=== PATIENT | female | born 1935 | race Caucasian/White ===

== ENCOUNTER 2019-08-09 16:15 | Inpatient (IN) | payer OTHER ==
[~2019-08-09] VITALS: Ht 121.9 cm; Wt 37.5 kg
--- NOTE | ~2019-08-09 | EKG ---
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
[2019-08-09 16:20] VITALS: BP 124/77
[2019-08-09 16:49] LABS: ABSOLUTE NEUTROPHILS 4.3 thou/uL (1.4-8.2); BASOPHILS 0.3 % (0.0-2.0); EOSINOPHILS 1.4 % (0.0-3.0); HEMATOCRIT 40.1 % (37.0-47.0); HEMOGLOBIN 12.8 gm/dL (12.0-15.0); MCH 28.2 pg (26.0-34.0); MCV 88.2 fL (80.0-100.0); PLATELET COUNT 120 thou/uL (150-400); POLYS 71.3 % (36.0-66.0); RBC 4.55 mil/uL (4.20-5.00); RDW 14.5 % (10.5-14.5); WBC 6.1 thou/uL (4.0-11.0)
[2019-08-09 17:04] LABS: ANION GAP 10 mmol/L (7-16); BUN 43 mg/dL (7-18); CHLORIDE 103 mmol/L (98-107); CO2 28 mmol/L (21-32); CREATININE 1.8 mg/dL (0.6-1.0); GLUCOSE 94 mg/dL (74-106); POTASSIUM 4.8 mmol/L (3.5-5.1); SODIUM 141 mmol/L (136-145)
[2019-08-09 17:08] LABS: ALBUMIN 3.6 g/dL (3.4-5.0); SALICYLATE < 2.8 mg/dL (2.8-20.0); SGOT 34 U/L (15-37); SGPT 18 U/L (30-65); TOTAL BILIRUBIN 0.4 mg/dL (<0.1-1.0); TOTAL PROTEIN 6.8 g/dL (6.4-8.2)
[2019-08-09 17:09] LABS: URINE BILIRUBIN NEGATIVE (Negative); URINE BLOOD NEGATIVE (Negative); URINE CLARITY CLEAR; URINE COLOR YELLOW; URINE GLUCOSE-RANDOM* NEGATIVE (Negative); URINE KETONES 1+ (Negative); URINE LEUKOCYTES-REFLEX NEGATIVE (Negative); URINE PROTEIN (DIPSTICK) 2+ (Negative); URINE SPECIFIC GRAVITY >= 1.030 (1.005-1.035)
[2019-08-09 17:10] LABS: URINE NITRITE-REFLEX POSITIVE (Negative)
[2019-08-09 17:15] LABS: AMP/METHAMP Negative (Negative); BARBITURATES Negative (Negative); BENZODIAZEPINES Negative (Negative); COCAINE Negative (Negative); METHADONE Negative (Negative); OPIATES Negative (Negative); PCP Negative (Negative)
[2019-08-09 17:19] LABS: CASTS None Seen /LPF (None Seen); CRYSTALS None Seen /LPF (None Seen); SQUAMOUS 0-3 Few /LPF (0-3); URINE RBC None Seen /HPF (0-2); URINE WBC-REFLEX None Seen /HPF (0-5)
[2019-08-09 20:41] VITALS: BP 133/68
[2019-08-09 21:10] VITALS: BP 141/73
[2019-08-09 21:34] VITALS: BP 152/80
[2019-08-09] MEDS ORDERED: DEPAKOTE SPRIN125 MG PO ×2 (21:54→21:55)
[2019-08-09] MEDS ORDERED: DULCOLAX10 MG RECTAL (21:57)
[2019-08-09] MEDS ORDERED: MILK OF MA400 MG/5 M PO (21:57)
[2019-08-09] MEDS ORDERED: MIRALAX17 GM PO (21:58)
[2019-08-09] MEDS ORDERED: THROAT LOZENGE1 EACH PO (21:59)
[2019-08-09] MEDS ORDERED: TYLENOL325 MG PO (22:00)
--- NOTE | 2019-08-09 22:33 | NUR ---
ARRIVED VIA HOSPITAL BED X1 ASSIST FROM [facility] ED @ 2200. STOOD TO TRANSFER FROM [facility] TO BED 525B. CONFUSED AND RESPONDED TO QUESTION ABLUT HER NAME, ANSWERING WITH WORDS THAT WERE NOT HER NAME. SLIGHTLY COOPERATIVE WITH ASSESSMENT. DID HOLD EQUIPMENT TIGHTLY WITH HER HANDS, NOT VIOLENT. SKIN IS INTACT, BRIEF WET, INCONTINENT OF BLADDER, NO STOOL NOTED. DRANK THIN WATER. CALLED DAUGHTER, JALEESA CORDOVA [phone] @ 22:15, MAILBOX FULL, SO UNABLE TO LEAVE A MSG. CALLED ON DPS OFFICE PHONE, MESSAGE LEFT. PATIENT DRESSED IN HOSPITAL GOWN, TUCKED INTO BED WITH YELLOW SOCKS ON. VITALS TAKEN, ASSESSMENT COMPLETE. BED IN LOW POSITION, BED ALARM SET. WILL CONTINUE TO MONITOR Q 12 FOR PATIENT SAFETY.
--- NOTE | 2019-08-10 06:16 | NUR ---
SLEPT 7.2 HOURS OVERNIGHT
[2019-08-10 07:30] VITALS: BP 125/90
[2019-08-10 08:41] LABS: FOLIC ACID 13.1 ng/mL (8.6-58.9); TSH 2.698 uIU/mL (0.358-3.740)
--- NOTE | 2019-08-10 12:07 | NUR ---
DUY contacted pt's daughter Yadira and received no answer; vm is full so no msg was left. DUY contacted pt's son Serafin who said he lives in [place] and did not know his mom was in the hospital. He said the last time he saw her was 9 months ago, and she was agitated at that time so his visit was very brief. He gave DUY his brother Maxwell's number ([phone]). DUY contacted Maxwell. No msg. She left a msg asking to have Yadira contact her. DUY again attempted to contact Yadira on mobile. No answer. DUY contacted Yadira's work number and was told she was out today. DUY again contacted Serafin and asked him to ask Yadira to contact her. He said he will also send her a text with DUY contact information. DUY team will continue to follow pt during her stay.
--- NOTE | 2019-08-10 12:58 | NUR ---
ASSUMED PATIENT CARE AT 0730M- PATIENT ALERT TO SELF. WANDERS ABOUT UNIT - POOR APPETITE. REFUSED TO EAT BREAKFAST ADN LUNCH. WILL ATTEMPT TO FEED SELF WHEN PLACE INFRONT OF HER. RESISTANCE TO ATTEMPTS AT HELPING HER. - QUIET - WILL ACCEPT REDIRECTION BUT NEED TO WIN TRUST AND CONFIDENCE WITH PATIENT. NO AGITATION OBSERVED BUT WILL RESIST AT TIMES - EXHIBITS FEAR AT TIMES WHEN APPROACHED. TAKENS MEDICATIONS CRUSHED BUT NEED ALOT OF ENCOURAGENMENT
--- NOTE | 2019-08-10 22:40 | NUR ---
THE PT REFUSED TO TAKE HER MEDICATION THIS PM, THIS WRIER HAD PUT IT IN YOGURT AND SHE REFUSED TO EVEN TRY IT. THE PT WAS SITTING IN THE DAYROOM FALLING ASLEEP, ATTEMPTED TO ASSIST THE PT TO BED, BUT SHE IS UP ABOUT HER ROOM AT THIS POINT IN TIME. REMAINS ON 12 MINUTE CHECKS FOR HER SAFETY.
[2019-08-10 22:51] VITALS: BP 141/80
--- NOTE | 2019-08-11 04:34 | NUR ---
THE PT APPEARED TO BE SLEEPING EARLIER IN THE SHIFT. SHE WAS INCONT. OF URINE X 1. IT WAS REPORTED TO THIS NURSE EARLIER IN THE SHIFT, THE PT HAS NOT BEEN EATING. REMAINS ON 12 MINUTE CHECKS FOR HER SAFETY.
--- NOTE | 2019-08-11 06:11 | NUR ---
the pt slept 4 hours last night.
--- NOTE | 2019-08-11 07:30 | NUR ---
Assumed care of patient from rn night. Patient confused, repeating words and phrases multiple times during assessment. Patient somewhat anxious. Appearance clean and neat. Patients affect normal. Breath sounds clear bilaterally. s1 s2 present. Bowel sounds present. Patient took am medications with much encouragement. Pills crushed and applesauce added. Patient difficult to redirect. Patient ambulates with out assistance and walks around the unit. Patient interacts with peers.
[2019-08-11 09:12] VITALS: BP 100/73
[2019-08-11 22:17] VITALS: BP 112/87
--- NOTE | 2019-08-12 01:26 | NUR ---
ASSUMED CARE @ 19:15 ON 08/11/19. NOTED TO BE AMBULATING THROUGH THE HALLWAYS AND DAY ROOM. AMBULATES INTO OTHER PATIENT'S ROOMS SITTING ON THEIR BEDS, OCCASIONALLY EVEN WHEN THE PATIENT IS IN THE BED. REFUSED HS PO MEDS. GIVEN HALDON 2 MG IM Q 4 HOUR PRN @ 21:06 FOR INCREASED AGITATION. BECAME CALM ENOUGH TO SIT IN A CHAIR, BUT CONTINUED AGITATION AND ANXIETY. JAMES sEROQUEL 25MG QID @ 11:59. ALLOWED HERSELF TO BE TRANSFERRED TO BED, AND CONTINUES TO REST IN BED WITH EYES CLOSED, RESPIRATIONS EVEN AND UNLABORED. WILL CONTINUE TO POSITION BED AT LOW LEVEL, BED ALARM SET. 12 MINUTE ROUNDING CONTINUING.
[2019-08-12 05:50] VITALS: BP 112/87
--- NOTE | 2019-08-12 05:58 | NUR ---
slept 5.6 hours overnight
[2019-08-12 09:16] VITALS: BP 112/87
--- NOTE | 2019-08-12 09:23 | NUR ---
ASSUMED CARE AT 0700 THIS MORNING. PT. WAS GOTTEN UP BY BAD WORK GATHERER'S FOR BREAKFAST. SHE WAS SIT IN A W/C DUE "STAGGERING, UNSTABLE" AMBULATION. SHE WAS PLACED AT A TABLE. SHE PUT HER HEAD DOWN ON THE TABLE AND RETURNED TO SLEEP. SHE REFUSED TO EAT BREAKFAST. MEDICATIONS WERE CRUSHED AND PLACED IN ICE CREAM. PT. TOOK THESE AND THEN ATE A FEW BITES OF ICE CREAM THEN REFUSED ANY MORE INTAKE. SHE WAS OFFERED WATER, BUT SHE REFUSED. SHE WAS ON THE UNIT FOR MORNING GROUP, BUT SLEPT THROUGH IT. SHE CONTINUES TO BE VERY CONFUSED. SHE SPEAKS VERY LITTLE BUT ONLY GETS OUT A FEW WORDS THAT ARE UNDERSTOOD. THE REST OF THE TIME SHE IS UNINTELLIGIBLE IN HER SPEECH.
[2019-08-12 20:34] VITALS: BP 149/91
--- NOTE | 2019-08-12 23:27 | NUR ---
Care assumed of patient at 1915: Patient will respond to her name being said. Patient can't verbalize her name. Unable to state current location, date and situation. Patient mumbling and rambling. Disorganized thoughts. Unable to understand what is being said. Patient took medication crushed without difficulty. Ate 25% HS snack. Patient appears anxious and becomes agitated when staff attempt to assist with ADLs. Patient has not shown any physical aggression at this time. Patient remains seated in w/c in the day room, awake. Patient does not appear tired at this time. Staff will assist patient to bed to see if she will be able to sleep this shift. Patient has been able to sit in the day room and fidget with activity mat this evening. No wandering or exploring observed. Patient remains on abx tx for the dx of UTI. No s/s of adverse effects noted at this time. Incontinent of bladder. Sadaf care provided after incontinent episode. No s/s of AH/VH, paranoia or delusional behaviors at this time.
[2019-08-13 05:59] LABS: HEMATOCRIT 37.4 % (37.0-47.0); HEMOGLOBIN 12.2 gm/dL (12.0-15.0); MCH 28.6 pg (26.0-34.0); MCHC 32.5 g/dL (28.0-37.0); PLATELET COUNT 111 thou/uL (150-400); RBC 4.25 mil/uL (4.20-5.00); RDW 14.3 % (10.5-14.5); WBC 5.5 thou/uL (4.0-11.0)
[2019-08-13 06:09] LABS: CALCIUM 9.1 mg/dL (8.5-10.1); CREATININE 2.4 mg/dL (0.6-1.0); MAGNESIUM 2.5 mg/dL (1.8-2.4); POTASSIUM 5.8 mmol/L (3.5-5.1)
--- NOTE | 2019-08-13 07:30 | NUR ---
Assumed care of patient this am. Patient up in wheel chair in [facility] this am during assessment. Vital signs stable, breath sounds clear to auscultation. Bowel sounds hypoactive. Patient often speaks with repetition of a single word. Patient states that she is not having any pain. Patients affect is flat. Patient took medication crushed with vanilla pudding this am. Much explanation and positive reinforcement needed to get patient to adhere to medication regimen. For lunch mata ate 35% of meal tray and drank 8oz of vanilla ensure. Patient requires assistance during meals.
[2019-08-13 08:00] VITALS: BP 149/91
--- NOTE | 2019-08-13 08:44 | EKG ---
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
[2019-08-13 09:26] LABS: ABSOLUTE NEUTROPHILS 3.6 thou/uL (1.4-8.2); ANISOCYTOSIS 1+
[2019-08-13 09:27] LABS: OVALOCYTES FEW
--- NOTE | 2019-08-13 14:54 | NUR ---
ATTEMPTED TO ELICIT PT PARTICIPATION IN P.T. MOBILITY ASSESSMENT THIS A.M. PT SOMEWHAT ANXIOUS AND DESPITE VARIOUS APPROACHES, PT UNWILLING TO PARTICIPATE IN ASSESSMENT. PT WITHDRAWING FROM OFFERS OF THERAPIST TO ASSIST WITH MOVEMENT OF UES/LES AND PHYSICAL RESISTING THERAPIST COAXING/REQUESTS TO STAND FROM W/C.
[2019-08-13 20:25] VITALS: BP 154/72
--- NOTE | 2019-08-13 22:42 | NUR ---
Care assumed of patient at 1915: Patient alert and oriented to person. Patient confused and forgetful. Patient seated in recliner at start of shift. IV fluids running at 250ml/hr to left forearm IV. No s/s of pain or discomfort. Patient easily agitated. Irritable during assessment. Patient was able to state a few words that were appropriate. Patient was being re-positioned in chair and she stated "If you push me one more time, I'm gonna pop you". Patient will also repeat what is said to her instead of forming her own answers or thoughts. Patient took HS medication crushed without difficulty. Patient ate approximately 10% HS snack with total assist. Patient remains on abx tx for UTI. No s/s of adverse effects noted at this time. Once IV fluids completed, patient was assisted to bed. Incontinent of bowel and bladder. Currently resting quietly in bed.
[2019-08-14 05:42] LABS: HEMATOCRIT 36.3 % (37.0-47.0); HEMOGLOBIN 11.7 gm/dL (12.0-15.0); MCH 28.5 pg (26.0-34.0); MCHC 32.4 g/dL (28.0-37.0); RBC 4.12 mil/uL (4.20-5.00); RDW 14.7 % (10.5-14.5); WBC 5.9 thou/uL (4.0-11.0)
[2019-08-14 06:04] LABS: CALCIUM 8.8 mg/dL (8.5-10.1); CREATININE 2.1 mg/dL (0.6-1.0); MAGNESIUM 2.3 mg/dL (1.8-2.4)
[2019-08-14 06:11] LABS: POTASSIUM 4.6 mmol/L (3.5-5.1)
[2019-08-14 09:08] VITALS: BP 191/95
--- NOTE | 2019-08-14 09:35 | NUR ---
0710: Report rec from [facility] shift, care assumed. [id number]: To via w/c, assisted by staff, pt observed in slumped posture while sitting in w/c, requires staff to feed a.m. meal, appetite poor, pt declines to open mouth for bites or fluids, takes meds crushed in pudding, multiple small bites required to administer meds. Verbal words are unrelated to topics, minimal verbalization noted, attended 0900 therapy group, no participation noted. Re-check B/P with small yjyx=[id number]/63.
[2019-08-14 10:02] VITALS: BP 100/63
--- NOTE | 2019-08-14 12:49 | NUR ---
SW spoke with Dr ferrer and pt will d/c tomorrow at 3pm. [place] to machine pecan picker. Ina BASS will be recieving report and assisting wiht the d/c [phone]
[2019-08-14 20:00] VITALS: BP 111/68
--- NOTE | 2019-08-14 23:59 | NUR ---
Pt resting in bed upon arrival to shift, singing to herself, pt compliant with medications, pt singing conversation with staff. pt laying in position.
--- NOTE | 2019-08-15 07:30 | NUR ---
Assumed care of patient this am. Patient in her room in bed sleeping. Vital signs stable, breath sounds clear and diminished. Bowel sounds present. Patient has an IV in the left forearm. Patient responds to verbal stimulation repeating the same words. Patients affect is tense. Patient takes medications crushed in pudding.
[2019-08-15 08:00] VITALS: BP 153/87
--- NOTE | 2019-08-15 08:55 | NUR ---
DUY spoke with pt's grand daughter regaridng her returning to [facility] and she was good with that. DUY hair spoke with Dr Lau and he will d/c her back there on 08/15. DUY spoke with Moham[facility] and they will come pick her up at 3pm. She will be returning LTC.
[2019-08-15 11:17] VITALS: BP 153/87
[2019-08-15] MEDS ORDERED: CEFUROXIME250 MG PO (12:45)
[2019-08-15] MEDS ORDERED: DEPAKOTE SPRIN125 MG PO (12:48)
--- NOTE | 2019-08-18 22:53 | D ---
[facility] [place] [address] DISCHARGE SUMMARY Name: HEATHER CANALES Room #: 525B-B DIS IN M.R.#: [id number] Admission: 08/09/19 Attend Phys: Dony Lau DO Discharge: 08/15/19 Date of : 35 Report #: [id number] THIS REPORT FOR: //name// CC: Dony Lau Gardenia Laurentfátima DATE OF SERVICE: 08/15/2019 INPATIENT PSYCHIATRIC DISCHARGE SUMMARY ATTENDING PSYCHIATRIST: Dony Lau DO POLE FRAME CONSTRUCTION WORKER AT THE TIME OF DISCHARGE: Roland Camacho MD DISCHARGE DIAGNOSES: Major neurocognitive disorder due to multiple etiologies with behavioral disturbance. The patient is in stage 7 with life expectancy in weeks. DISCHARGE PLAN: She is discharging to the [facility], hospice care to be provided at that facility. PROGNOSIS: Terminal as already stated. DISCHARGE DIET: Essentially comfort feedings. MEDICATIONS FOR DISCHARGE: 5 days of cefuroxime which is Ceftin 250 mg for urinary tract infection, Depakote 500 mg p.o. at bedtime for behavior, MiraLax 17 grams daily. If she is unable to take the medicine, then it should not be forced obviously. REASON FOR ADMISSION: [facility] is as follows, brought in from [facility] She reported she was exhibiting aggressive behavior when I sent her to ED. HOSPITAL COURSE: The patient's functional level declined, intake declined. She is very frail, very thin and around 70 pounds. I am told the patient was able to be dressed and such, but essentially last several days at almost no participation in therapies. LABORATORY DATA: In short, this admission H and H 11.7 and 36.3, platelet count 118, otherwise 08/14/2019 was normal CBC, electrolytes, she was becoming hypernatremic, sodium 156, chloride 110, BUN 60, creatinine 2.1. Her creatinine, however, went from 1.8 to 2.4. Family did not want a PEG tube or further intravenous fluid. She did get a couple of boluses earlier on in her admission, IV fluids. Urine was positive for the E. coli, Enterococcus. [facility] [address] [place] [address] DISCHARGE SUMMARY Name: HEATHER CANALES Room #: 525B-B DIS IN M.R.#: [id number] Admission: 08/09/19 Attend Phys: Dony Lau DO Discharge: 08/15/19 Date of : 35 Report #: [id number] VITAL SIGNS: On the day of discharge, temperature 37.1, pulse 52, respirations 18, BP 153/87, O2 sat 96%. The patient is essentially nonverbal with me. Did not appear in grave distress, was not self-injurious. Otherwise, further details of discharge mental status examination, insight impaired, judgment impaired, memory impaired, thought process of gross poverty of thought. Prognosis is terminal due to the degree and effects of major neurocognitive disorder like poor oral intake. <ELECTRONICALLY SIGNED> By: Dony Lau DO 08/18/19 [id number] Dony Lau DO /nt
== END 2019-08-15 15:20 | DRG 884 ==
LOC: ER 16:15 → EROBS 19:24 → SBH 19:24
PROVIDERS: Emergency Medicine; Internal Medicine; Nurse Practitioner; Physician Assistant; ADMIT Psychiatry & Neurology Psychiatry
DX: F01.51 Vascular dementia, unspecified severity, with behavioral disturbance (principal); N17.9 Acute kidney failure, unspecified; N39.0 Urinary tract infection, site not specified; I48.91 Unspecified atrial fibrillation; J44.9 Chronic obstructive pulmonary disease, unspecified; N18.9 Chronic kidney disease, unspecified; I27.20 Pulmonary hypertension, unspecified; I73.9 Peripheral vascular disease, unspecified; E86.0 Dehydration; Z66 Do not resuscitate; Z51.5 Encounter for palliative care; Z79.899 Other long term (current) drug therapy
CPT/HCPCS: 10880